=== PATIENT | male | born 1950 | race Asian ===

== ENCOUNTER 2016-08-13 22:17 | Emergency (ER) | payer BC ==
[~2016-08-13] VITALS: Ht 175.3 cm; Wt 76.2 kg
[2016-08-13 22:34] VITALS: BP 170/95
[2016-08-13] MEDS ORDERED: TDAP [DIPH/PERTUSSIS/TET] 0.5 ML VIAL IM ONE ×2 (23:30→23:57)
== END 2016-08-14 00:07 | disposition home or self-care (01) ==
LOC: ER 22:25
DX: S61.011A Laceration without foreign body of right thumb without damage to nail, initial encounter (principal); I48.91 Unspecified atrial fibrillation; W45.8XXA Other foreign body or object entering through skin, initial encounter; Y93.G3 Activity, cooking and baking; Y92.89 Other specified places as the place of occurrence of the external cause; Y99.8 Other external cause status
CPT/HCPCS: 12001; 90471; 90715; 99283; A4606; A6402 ×2; Z7610; L0172

== ENCOUNTER 2020-09-09 14:20 | Outpatient (CLI) | payer OTHER | END 2020-09-09 23:59 | disposition home or self-care (01) | LOC: WOU 14:20 | PROVIDERS: ATTEND Surgery | DX: S40.022A Contusion of left upper arm, initial encounter (principal); X58.XXXA Exposure to other specified factors, initial encounter; Y92.89 Other specified places as the place of occurrence of the external cause; I48.91 Unspecified atrial fibrillation; Z86.73 Personal history of transient ischemic attack (TIA), and cerebral infarction without residual deficits; Z79.01 Long term (current) use of anticoagulants | CPT/HCPCS: G0463 ==

== ENCOUNTER 2020-09-23 14:10 | Outpatient (CLI) | payer OTHER | END 2020-09-23 23:59 | disposition home or self-care (01) | LOC: WOU 14:10 | PROVIDERS: ATTEND Surgery | DX: S40.022D Contusion of left upper arm, subsequent encounter (principal); W22.8XXD Striking against or struck by other objects, subsequent encounter; I48.91 Unspecified atrial fibrillation; Z86.73 Personal history of transient ischemic attack (TIA), and cerebral infarction without residual deficits; Z79.01 Long term (current) use of anticoagulants | CPT/HCPCS: G0463 ==

== ENCOUNTER 2022-08-03 11:08 | Inpatient (IN) | payer OTHER ==
[~2022-08-03] VITALS: Ht 175.3 cm; Wt 72.6 kg
--- NOTE | 2022-08-03 11:38 | NUR ---
The patient is fully vaccinated against COVID-19, with Moderna and had booster shots
--- NOTE | 2022-08-03 11:38 | NUR ---
The patient was tested for COVID last week , 07/30/2022, which turns out positive
--- NOTE | 2022-08-03 11:38 | NUR ---
Brought by his son to the emergency department, complaining of shortness of breath, which started last night
--- NOTE | 2022-08-03 11:38 | NUR ---
Placed on nasal cannula at 4 L, with oxygen saturations recorded at 96%
--- NOTE | 2022-08-03 12:06 | NUR ---
blood drawn sent to lab
--- NOTE | 2022-08-03 12:19 | NUR ---
URINE SAMPLE SENT TO LAB
[2022-08-03 12:29] LABS: BILIRUBIN,URINE 2+ (NEGATIVE); COLOR,URINE DARK YELLOW (YELLOW); LEUKOCYTE ESTERASE ,URINE NEGATIVE (NEGATIVE); NITRITE, URINE NEGATIVE (NEGATIVE); PH,URINE 5.5 (5.0-8.0); PROTEIN,URINE 1+ mg/dl (NEGATIVE); UGLUCOSE NEGATIVE (NEGATIVE)
[2022-08-03 12:30] LABS: BASOPHILS % (AUTO) 0.1 % (0.0-2.0); EOSINOPHILS % (AUTO) 0.1 % (0.0-6.0); HEMATOCRIT 43 % (39-51); HEMOGLOBIN 14.2 g/dL (13.5-17.5); LYMPHOCYTES # (AUTO) 0.4 K/uL (0.8-4.8); LYMPHOCYTES % (AUTO) 10.9 % (20.0-44.0); MEAN CORPUSCULAR HGB CONC 33 g/dl (31.0-36.0); MEAN CORPUSCULAR VOLUME 93 fL (80-96); MONOCYTES # (AUTO) 0.2 K/uL (0.1-1.30); MONOCYTES % (AUTO) 4.4 % (2.0-12.0); NEUTROPHILS # (AUTO) 3.1 K/uL (1.8-8.9); NEUTROPHILS % (AUTO) 84.5 % (43.0-81.0); PLATELET COUNT (AUTO) 165 K/uL (150-450); RED BLOOD CELL COUNT(AUTO) 4.62 MIL/uL (4.5-6.0); WHITE BLOOD COUNT (AUTO) 3.7 K/uL (4.3-11.0)
[2022-08-03 12:37] LABS: CALCIUM, SERUM 8.2 mg/dL (8.5-10.1); CARBON DIOXIDE 23 mmol/L (21-32); CHLORIDE 95 mmol/L (98-107); CREATININE 1.2 mg/dL (0.6-1.3); GLUCOSE 120 mg/dL (74-106); POTASSIUM 3.1 mmol/L (3.5-5.1); SODIUM SERUM 131 mmol/L (136-145); UREA NITROGEN, BLOOD 17 mg/dL (7-18)
[2022-08-03 12:45] LABS: BACTERIA,URINE None seen /HPF (None Seen); COARSE GRANULAR CASTS,URINE Few /LPF (None Seen); HYALINE CASTS, URINE Few /LPF (None Seen); SQUAMOUS EPITHELIAL CELL,UR Rare /HPF (None Seen)
[2022-08-03 12:52] LABS: ALANINE AMINOTRANSFERASE 111 U/L (12-78); ALBUMIN 3.1 g/dL (3.4-5.0); ALKALINE PHOSPHATASE 68 U/L (46-116); ASPARTATE AMINOTRANSFERASE 271 U/L (15-37); BILIRUBIN,DIRECT 0.6 mg/dL (0.0-0.2); BILIRUBIN,TOTAL 1.2 mg/dL (0.2-1.0); TOTAL PROTEIN, SERUM 6.7 g/dL (6.4-8.2)
--- NOTE | 2022-08-03 13:12 | NUR ---
SWAB FOR COVID19 SENT TO LAB
[2022-08-03] MEDS ORDERED: AMIO200T5 PO (13:16)
[2022-08-03] MEDS ORDERED: METO25TA4 PO (13:16)
[2022-08-03] MEDS ORDERED: RIVA10TA PO (13:16)
[2022-08-03] MEDS ORDERED: ATOR40TA PO (13:16)
--- NOTE | 2022-08-03 13:47 | NUR ---
GOT BED 104 ADMITTING INFORMED.
--- NOTE | 2022-08-03 14:28 | NUR ---
REPORT GIVEN TO [facility] ROOM 104 FOR MAREN
--- NOTE | 2022-08-03 14:55 | NUR ---
RN NOTES: RECEIVED PT FROM ER ALERT AND ORIENTED X 4, ON OXYGEN 4 LITER VIA NASAL CANNULA, NOTED WITH SOB ON EXERTION, ON ISOLATION FOR COVID 19, SKIN INTACT, DENIED PAIN OR DISCOMFORT, ABLE TO MOVE ALL EXTREMITIES EXCEPT LEFT ARM NOTED WITH WEAKNESS DUE TO HX OF CVA ON 2019, WILL MONITOR
[2022-08-03] MEDS: ENOXAPARIN SODIUM 60 MG/0.6 ML DISP.SYRIN SQ SCH (15:52)
[2022-08-03 16:00] VITALS: BP 118/68
[2022-08-03] MEDS ORDERED: Z GUARD REMEDY 4 OZ OINT TP PRN (16:00)
[2022-08-03] MEDS ORDERED: MAGNESIUM HYDROXIDE 30 ML UDC PO PRN (16:00)
[2022-08-03] MEDS ORDERED: POTASSIUM CHLORIDE 20 MEQ TAB.PRT.SR PO ONE (16:00)
[2022-08-03] MEDS ORDERED: ONDANSETRON HCL/PF 4 MG/2 ML VIAL IVP PRN (16:00)
[2022-08-03] MEDS: DEXAMETHASONE SOD PHOSPHATE 10 MG/ML VIAL IV SCH (16:12)
[2022-08-03] MEDS: RIVAROXABAN 10 MG TABLET PO SCH (17:59)
[2022-08-03] MEDS: ATORVASTATIN 40 MG TABLET PO SCH (21:13)
[2022-08-03 22:00] VITALS: BP_SYST 118; BP_SYST 139; BP_DIAS 68; BP_DIAS 83
[2022-08-04 01:08] VITALS: BP 139/83
[2022-08-04] MEDS: ENOXAPARIN SODIUM 60 MG/0.6 ML DISP.SYRIN SQ SCH (02:35)
[2022-08-04 06:14] VITALS: BP 140/72
[2022-08-04 06:44] LABS: ALBUMIN 2.8 g/dL (3.4-5.0); BILIRUBIN,DIRECT 0.5 mg/dL (0.0-0.2); BILIRUBIN,TOTAL 1.1 mg/dL (0.2-1.0); CHOLESTEROL 87 mg/dL (<200); HDL CHOLESTEROL 31 mg/dL (40-60); LDL 42 mg/dL (0-99); TOTAL PROTEIN, SERUM 6.1 g/dL (6.4-8.2); TRIGLYCERIDES 81 mg/dL (30-150)
[2022-08-04 07:21] LABS: BASOPHILS % (AUTO) 0.3 % (0.0-2.0); HEMATOCRIT 37 % (39-51); HEMOGLOBIN 12.5 g/dL (13.5-17.5); LYMPHOCYTES # (AUTO) 0.5 K/uL (0.8-4.8); LYMPHOCYTES % (AUTO) 25.1 % (20.0-44.0); MEAN CORPUSCULAR HGB CONC 34 g/dl (31.0-36.0); MEAN CORPUSCULAR VOLUME 92 fL (80-96); MONOCYTES # (AUTO) 0.1 K/uL (0.1-1.30); MONOCYTES % (AUTO) 5.7 % (2.0-12.0); NEUTROPHILS # (AUTO) 1.5 K/uL (1.8-8.9); NEUTROPHILS % (AUTO) 68.9 % (43.0-81.0); PLATELET COUNT (AUTO) 166 K/uL (150-450); RED BLOOD CELL COUNT(AUTO) 3.99 MIL/uL (4.5-6.0); WHITE BLOOD COUNT (AUTO) 2.1 K/uL (4.3-11.0)
--- NOTE | 2022-08-04 07:25 | NUR ---
RN OPEN NOTE: ALERT AND ORIENTED TIMES 4. UNLABORED BREATHING AT ROOM AIR. NURSING INFORMATICS SPECIALIST WITH SINUS RHYTHM 74. IV ON RIGHT FOREARM INTACT. SALINE LOCKED, PATENT. NO S/S OF COMPLICATIONS. HOB ELEVATED ON SEMI-FOWLERS POSITION. BILATERAL HALF SIDE RAILS UPX2. BED IN LOW POSITION, LOCKED, EXIT ALARM ON. CALL LIGHT IN REACH. NO COUGH NO CONGESTION NOTED. DENIES PAIN OR DISCOMFORT.
[2022-08-04 07:59] LABS: ALANINE AMINOTRANSFERASE 122 U/L (12-78); ALBUMIN 2.8 g/dL (3.4-5.0); ALKALINE PHOSPHATASE 64 U/L (46-116); ASPARTATE AMINOTRANSFERASE 238 U/L (15-37); CALCIUM, SERUM 8.2 mg/dL (8.5-10.1); CARBON DIOXIDE 24 mmol/L (21-32); CHLORIDE 100 mmol/L (98-107); CREATININE 1.1 mg/dL (0.6-1.3); GLUCOSE 205 mg/dL (74-106); MAGNESIUM 2.2 mg/dL (1.8-2.4); POTASSIUM 3.8 mmol/L (3.5-5.1); SODIUM SERUM 134 mmol/L (136-145); TOTAL PROTEIN, SERUM 6.1 g/dL (6.4-8.2); UREA NITROGEN, BLOOD 18 mg/dL (7-18)
[2022-08-04 08:00] VITALS: BP 155/80
[2022-08-04] MEDS: PANTOPRAZOLE 40 MG TABLET.DR PO SCH (08:33)
[2022-08-04] MEDS: DEXAMETHASONE SOD PHOSPHATE 10 MG/ML VIAL IV SCH (08:33)
[2022-08-04] MEDS: METOPROLOL SUCCINATE 25 MG TAB.SR.24H PO SCH (08:34)
[2022-08-04] MEDS: AMIODARONE HCL 200 MG TABLET PO SCH (08:34)
[2022-08-04] MEDS: ACETAMINOPHEN 325 MG TABLET PO PRN (08:46)
[2022-08-04] MEDS: ASPIRIN 81 MG TAB.CHEW PO SCH (09:39)
--- NOTE | 2022-08-04 11:00 | NUR ---
RECEIVED VERBAL REPORT FROM [facility] 106 TRENDING DOWN.
[2022-08-04 12:00] VITALS: BP 125/68
[2022-08-04 16:00] VITALS: BP 125/71
[2022-08-04] MEDS: RIVAROXABAN 10 MG TABLET PO SCH (17:23)
--- NOTE | 2022-08-04 18:10 | NUR ---
RN CLOSING NOTE: ALERT AND ORIENTED TIMES 4. UNLABORED BREATHING WITH 02 2LPM NC SATING AT 100%. COVERAGE SPECIALIST RN WITH SINUS [id number]. DR. RILEY INFORMED PER [facility] ([facility]) LAB PATIENT IS POSITIVE FOR MRSA RIGHT NARE, AND MRSA CULTURE OF RIGHT NARE FINAL RESULTS SHOWS POSITIVE FOR MRSA OF RIGHT NARE WITH ORDERS FOR BACTROBAN BID. IV ON RIGHT FOREARM INTACT. SALINE LOCKED, PATENT. NO S/S OF COMPLICATIONS. HOB ELEVATED ON SEMI-FOWLERS POSITION. BILATERAL HALF SIDE RAILS UPX2. BED IN LOW POSITION, LOCKED, EXIT ALARM ON. CALL LIGHT IN REACH. NO COUGH NO CONGESTION NOTED. DENIES PAIN OR DISCOMFORT.
--- NOTE | 2022-08-04 19:30 | NUR ---
ORTHOPEDIC PHYSICIAN OPENING NOTE RECEIVED PT AWAKE IN BED. A/O X4 AND ABLE TO MAKE NEEDS KNOWN. PT ON O2 @ 2LPM VIA NC, TOLERATING WELL. NO SOB OR S/S OF RESPIRATORY DISTRESS. BREATHING EVEN AND UNLABORED. ON EXTERNAL MATERIAL MAN READING SR 60 BPM. IV ACCESS RFA 20G, INTACT AND PATENT. SAFETY PRECAUTIONS IN PLACE. BED IN LOWEST LOCKED POSITION, HOB ELEVATED, SIDE RAILS UP X2, AND CALL LIGHT AND TABLE WITHIN REACH. ALL NEEDS MET AT THIS TIME.
[2022-08-04 20:00] VITALS: BP 115/77
[2022-08-04] MEDS: MUPIROCIN OINT 2% 22 GM TUBE NS SCH (21:02)
[2022-08-04] MEDS: ATORVASTATIN 40 MG TABLET PO SCH (21:03)
[2022-08-05] VITALS: BP 130/52
[2022-08-05 04:00] VITALS: BP 121/83
[2022-08-05] MEDS: ACETAMINOPHEN 325 MG TABLET PO PRN ×2 (04:07→13:45)
--- NOTE | 2022-08-05 04:07 | NUR ---
RN NOTE PT COMPLAINED OF MILD HEADACHE AT THIS TIME. ADMINISTERED ACETAMINOPHEN 650 MG FOR MILD HEADACHE AT THIS TIME PER PT REQUEST. MADE COMFORTABLE IN BED. ALL NEEDS MET AT THIS TIME.
[2022-08-05 06:24] LABS: BASOPHILS % (AUTO) 0.2 % (0.0-2.0); HEMATOCRIT 33 % (39-51); HEMOGLOBIN 11.1 g/dL (13.5-17.5); LYMPHOCYTES # (AUTO) 0.5 K/uL (0.8-4.8); LYMPHOCYTES % (AUTO) 7.8 % (20.0-44.0); MEAN CORPUSCULAR HGB CONC 34 g/dl (31.0-36.0); MEAN CORPUSCULAR VOLUME 92 fL (80-96); MONOCYTES # (AUTO) 0.5 K/uL (0.1-1.30); MONOCYTES % (AUTO) 7.7 % (2.0-12.0); NEUTROPHILS # (AUTO) 5.2 K/uL (1.8-8.9); NEUTROPHILS % (AUTO) 84.3 % (43.0-81.0); PLATELET COUNT (AUTO) 174 K/uL (150-450); RED BLOOD CELL COUNT(AUTO) 3.57 MIL/uL (4.5-6.0); WHITE BLOOD COUNT (AUTO) 6.2 K/uL (4.3-11.0)
--- NOTE | 2022-08-05 06:40 | NUR ---
FOREIGN FOOD SPECIALTY COOK CLOSING NOTE PT AWAKE IN BED. A/O X4 AND ABLE TO MAKE NEEDS KNOWN. PT ON O2 @ 2LPM VIA NC, TOLERATING WELL, FOR COMFORT ONLY. NO SOB OR S/S OF RESPIRATORY DISTRESS. BREATHING EVEN AND UNLABORED. ON EXTERNAL GRAPHICS EDIT TECHNICIAN READING V PACING 60 BPM. IV ACCESS RFA 20G SL, INTACT AND PATENT. ALL DUE MEDS GIVEN ORDERED. KEPT CLEAN AND DRY. SAFETY PRECAUTIONS IN PLACE AT ALL TIMES. BED IN LOWEST LOCKED POSITION, HOB ELEVATED, SIDE RAILS UP X2, AND CALL LIGHT AND TABLE WITHIN REACH. ALL NEEDS MET AT THIS TIME AND WILL ENDORSE TO ONCOMING NURSE FOR MAREN.
[2022-08-05 06:52] LABS: CALCIUM, SERUM 8.1 mg/dL (8.5-10.1); CARBON DIOXIDE 24 mmol/L (21-32); CHLORIDE 101 mmol/L (98-107); GLUCOSE 136 mg/dL (74-106); POTASSIUM 3.9 mmol/L (3.5-5.1); SODIUM SERUM 132 mmol/L (136-145); UREA NITROGEN, BLOOD 23 mg/dL (7-18)
--- NOTE | 2022-08-05 07:10 | NUR ---
HORTICULTURE SUPERVISOR NOTES Received pt awake in bed AOX4. No complaints of pain or discomfort at this time. Pt is currently on 2L NC and tolerating it well. IV access on RFA 20G SL patent and intact. HOB elevated to pts comfort. Siderails up at all times x2. Call light within reach. Will continue to monitor.
[2022-08-05] MEDS: PANTOPRAZOLE 40 MG TABLET.DR PO SCH (07:45)
[2022-08-05 08:00] VITALS: BP 130/75
[2022-08-05] MEDS: AMIODARONE HCL 200 MG TABLET PO SCH (08:40)
[2022-08-05] MEDS: METOPROLOL SUCCINATE 25 MG TAB.SR.24H PO SCH (08:40)
[2022-08-05] MEDS: ASPIRIN 81 MG TAB.CHEW PO SCH (08:40)
[2022-08-05] MEDS: MUPIROCIN OINT 2% 22 GM TUBE NS SCH ×2 (08:40→21:14)
[2022-08-05] MEDS: DEXAMETHASONE SOD PHOSPHATE 10 MG/ML VIAL IV SCH (08:43)
[2022-08-05 12:00] VITALS: BP 127/76
[2022-08-05 16:00] VITALS: BP 114/68
[2022-08-05] MEDS: RIVAROXABAN 10 MG TABLET PO SCH (17:06)
--- NOTE | 2022-08-05 18:43 | NUR ---
PET STYLIST CLOSING NOTE All due meds and tx given as ordered. Pt tolerated everything well. All needs attended to. Pt is currently on RA and tolerating it well. IV access on RFA 20G SL patent and intact. HOB elevated to 30-45 degrees. Siderails up at all times x2. Call light within reach. Will endorse to oncoming nurse.
--- NOTE | 2022-08-05 19:30 | NUR ---
SUPERINTENDENT LAUNDRY OPENING NOTE RECEIVED PT IN BED, AWAKE, A/O X4, VERBALLY RESPONSIVE. DENIES PAIN/DISCOMFORT AT THIS TIME. CURRENTLY ON O2 2LPM VIA NC, TOLERATING WELL, NO SOB OR S/S OF RESPIRATORY DISTRESS. BREATHING EVEN AND UNLABORED. ON EXTERNAL PATIENT COORDINATOR FRONT DESK READING SR 60 BPM. IV ACCESS RFA 20G, CLEAN, INTACT AND DRY. SAFETY PRECAUTIONS IN PLACE. BED IN LOWEST LOCKED POSITION, HOB ELEVATED, SIDE RAILS UP X2, CALL LIGHT AND TABLE WITHIN REACH. WILL CONT POC.
[2022-08-05 20:00] VITALS: BP 125/70
[2022-08-05] MEDS: ATORVASTATIN 40 MG TABLET PO SCH (21:15)
[2022-08-06] VITALS: BP 116/67
[2022-08-06 04:00] VITALS: BP 108/67
--- NOTE | 2022-08-06 06:23 | NUR ---
SOLAR ENERGY ENGINEER CLOSING NOTE PT IN BED, ASLEEP, EASILY AWAKEN WITH VERBAL STIMULI. NO SIGNIFICANT CHANGES NOTED DURING THE SHIFT. NO EVIDENCE OF PAIN/DISCOMFORT AT THIS TIME. ON RA, TOLERATING WELL, O2 SAT 97%, NO SOB OR S/S OF ACUTE RESPIRATORY DISTRESS. RESPIRATION EVEN AND UNLABORED. ON EXTERNAL WORLD RENOWNED CHEF AND RESTAURANT OWNER VPACING 60. IV ACCESS ON RFA 20G, INTACT AND FLUSHES WELL. ALL DUE MEDICATIONS GIVEN ORDERED. ALL NEEDS ATTENDED. SAFETY PRECAUTIONS IN PLACED: BED IN LOWEST LOCKED POSITION, HOB ELEVATED, SIDE RAILS UP X2, CALL LIGHT AND TABLE WITHIN REACH.
[2022-08-06 07:09] LABS: CALCIUM, SERUM 8.6 mg/dL (8.5-10.1); CARBON DIOXIDE 28 mmol/L (21-32); CHLORIDE 100 mmol/L (98-107); GLUCOSE 131 mg/dL (74-106); POTASSIUM 3.8 mmol/L (3.5-5.1); SODIUM SERUM 134 mmol/L (136-145); UREA NITROGEN, BLOOD 25 mg/dL (7-18)
[2022-08-06 07:22] LABS: ALBUMIN 2.9 g/dL (3.4-5.0); TOTAL PROTEIN, SERUM 6.3 g/dL (6.4-8.2)
[2022-08-06] MEDS: PANTOPRAZOLE 40 MG TABLET.DR PO SCH (07:33)
--- NOTE | 2022-08-06 07:40 | NUR ---
WEB DEVELOPMENT DIRECTOR OPEN NOTE PT IN BED, ASLEEP, EASILY AWAKEN WITH VERBAL STIMULI. NO EVIDENCE OF PAIN/DISCOMFORT AT THIS TIME. ON RA, TOLERATING WELL, O2 SAT 99%, NO SOB OR S/S OF ACUTE RESPIRATORY DISTRESS. RESPIRATION EVEN AND UNLABORED. ON EXTERNAL SWISS TYPE SCREW MACHINE OPERATOR VPACING 66. IV ACCESS ON RFA 20G, INTACT AND FLUSHES WELL.SAFETY PRECAUTIONS IN PLACED: BED IN LOWEST LOCKED POSITION, HOB ELEVATED, SIDE RAILS UP X2, CALL LIGHT AND TABLE WITHIN REACH. WILL CONTINUE TO MONITOR
[2022-08-06 07:53] LABS: BILIRUBIN,DIRECT 0.5 mg/dL (0.0-0.2); BILIRUBIN,TOTAL 1.2 mg/dL (0.2-1.0)
[2022-08-06 08:00] VITALS: BP 125/64
[2022-08-06] MEDS: MUPIROCIN OINT 2% 22 GM TUBE NS SCH ×2 (08:28→21:27)
[2022-08-06] MEDS: DEXAMETHASONE SOD PHOSPHATE 10 MG/ML VIAL IV SCH (08:29)
[2022-08-06] MEDS: AMIODARONE HCL 200 MG TABLET PO SCH (08:29)
[2022-08-06] MEDS: ASPIRIN 81 MG TAB.CHEW PO SCH (08:30)
[2022-08-06] MEDS: METOPROLOL SUCCINATE 25 MG TAB.SR.24H PO SCH (08:30)
[2022-08-06 09:42] LABS: HEMATOCRIT 32 % (39-51); HEMOGLOBIN 10.9 g/dL (13.5-17.5); MEAN CORPUSCULAR HGB CONC 34 g/dl (31.0-36.0); MEAN CORPUSCULAR VOLUME 92 fL (80-96); PLATELET COUNT (AUTO) 182 K/uL (150-450); RED BLOOD CELL COUNT(AUTO) 3.53 MIL/uL (4.5-6.0); WHITE BLOOD COUNT (AUTO) 7.9 K/uL (4.3-11.0)
[2022-08-06 12:14] VITALS: BP 124/76
[2022-08-06 16:00] VITALS: BP 134/77
[2022-08-06] MEDS: RIVAROXABAN 10 MG TABLET PO SCH (17:34)
[2022-08-06 18:05] LABS: BAND % (MANUAL) 1 % (0.0-5.0); LYMPHOCYTES % (MANUAL) 8 % (16-48); MONOCYTES % (MANUAL) 12 % (0-11.0); NEUTROPHILS % (MANUAL) 79 (42-76)
--- NOTE | 2022-08-06 18:35 | NUR ---
HEAVY RAIL TRAIN OPERATOR CLOSING NOTE PT IN BED, ALERT , ORIENTED TIMES 3 , NO EVIDENCE OF PAIN/DISCOMFORT AT THIS TIME. ON RA, TOLERATING WELL, O2 SAT 99%, NO SOB OR S/S OF ACUTE RESPIRATORY DISTRESS. RESPIRATION EVEN AND UNLABORED. ON EXTERNAL POULTRY EVISCERATOR VPACING 68 IV ACCESS ON RFA 20G, INTACT AND FLUSHES WELL.ALL MEDICATIONS WERE ADMINISTERED , ALL NEEDS WERE MET .SAFETY PRECAUTIONS IN PLACED: BED IN LOWEST LOCKED POSITION, HOB ELEVATED, SIDE RAILS UP X2, CALL LIGHT AND TABLE WITHIN REACH. WILL ENDORSE QA AUTOMATION ARCHITECT NURSE TO FALLOW POC
--- NOTE | 2022-08-06 19:30 | NUR ---
PRODUCTION ASSISTANT OPENING NOTE RECEIVED PT IN COMFORTABLY RESTING IN BED, AWAKE, A/O X4, VERBALLY RESPONSIVE. DENIES PAIN/DISCOMFORT AT THIS TIME. ON ROOM AIR, TOLERATING WELL, NO SOB OR S/S OF RESPIRATORY DISTRESS. BREATHING EVEN AND UNLABORED. EXTERNAL SURGICAL ONCOLOGIST ATTACHED. IV ACCESS RFA 20G, CLEAN, INTACT, DRY AND FLUSHES WELL. SAFETY PRECAUTIONS IN PLACED. BED IN LOWEST AND LOCKED POSITION, HOB ELEVATED, SIDE RAILS UP X2, CALL LIGHT AND TABLE WITHIN REACH. WILL CONT POC.
[2022-08-06 20:00] VITALS: BP 133/74
[2022-08-06] MEDS: ATORVASTATIN 40 MG TABLET PO SCH (21:27)
[2022-08-07] VITALS: BP 134/84
[2022-08-07 04:00] VITALS: BP 138/79
--- NOTE | 2022-08-07 06:19 | NUR ---
COMMERCIAL DRONE PILOT CLOSING NOTE PT REMAINS IN STABLE CONDITION. NO SIGNIFICANT CHANGES NOTED DURING THE SHIFT. REMAINS ON RA, WELL MARQUIS. NO SOB/ NO ACUTE RESP. DISTRESS NOTED, O2 SAT 96%. RESPIRATION EVEN AND UNLABORED. ATTACHED TO EXTERNAL INBOUND CALL CENTER REPRESENTATIVE AV PACING SR. VS WNL. ALL DUE MEDS GIVEN ORDERED. SAFETY PRECAUTIONS IMPLEMENTED AT ALL TIMES: BED LOCKED AND IN LOWEST POSITION, CALL LIGHT WITHIN EASY REACH. WILL ENDORSE TO AM SHIFT FOR MAREN.
--- NOTE | 2022-08-07 07:00 | NUR ---
DAIRY CATTLE FARM WORKER OPEN NOTE PT IN BED, ASLEEP, EASILY AWAKEN WITH VERBAL STIMULI. NO EVIDENCE OF PAIN/DISCOMFORT AT THIS TIME. O2 2L VIA NC, TOLERATING WELL, SAT 99%, NO SOB OR S/S OF ACUTE RESPIRATORY DISTRESS. RESPIRATION EVEN AND UNLABORED. IV ACCESS ON RFA 20G, INTACT AND FLUSHES WELL. ORDER FOR DISCHARGE TODAY, CLEARANCE FOR DC FOR DR BALLESTEROS. PT HAS A SCHEDULED CARDIOLOGY APPOINTMENT OUTSIDE A HOSPITAL, FAMILY GUILLERMO COME TO RAILROAD POLICE OFFICER PT.
[2022-08-07] MEDS: PANTOPRAZOLE 40 MG TABLET.DR PO SCH (07:52)
[2022-08-07 08:00] VITALS: BP 133/72
[2022-08-07] MEDS: DEXAMETHASONE SOD PHOSPHATE 10 MG/ML VIAL IV SCH (08:44)
[2022-08-07] MEDS: ASPIRIN 81 MG TAB.CHEW PO SCH (08:44)
[2022-08-07] MEDS: METOPROLOL SUCCINATE 25 MG TAB.SR.24H PO SCH (08:45)
[2022-08-07] MEDS: MUPIROCIN OINT 2% 22 GM TUBE NS SCH (08:46)
[2022-08-07 08:48] VITALS: BP 133/72
[2022-08-07] MEDS: AMIODARONE HCL 200 MG TABLET PO SCH (08:48)
[2022-08-07] MEDS ORDERED: DEXA6TAB6 PO (09:44)
== END 2022-08-07 11:25 | disposition home health service (06) | DRG 177 ==
LOC: ER 11:08 → TELE1 14:18
PROVIDERS: ADMIT Nurse Practitioner Family; ATTEND Internal Medicine
DX: U07.1 COVID-19 (principal); I21.A1 Myocardial infarction type 2; J96.01 Acute respiratory failure with hypoxia; E87.1 Hypo-osmolality and hyponatremia; I69.354 Hemiplegia and hemiparesis following cerebral infarction affecting left non-dominant side; E44.1 Mild protein-calorie malnutrition; I48.91 Unspecified atrial fibrillation; Z95.0 Presence of cardiac pacemaker; E78.5 Hyperlipidemia, unspecified; G47.30 Sleep apnea, unspecified; Z79.01 Long term (current) use of anticoagulants; Z79.899 Other long term (current) drug therapy; E87.6 Hypokalemia; E80.6 Other disorders of bilirubin metabolism; R74.01 Elevation of levels of liver transaminase levels; E88.09 Other disorders of plasma-protein metabolism, not elsewhere classified; D72.819 Decreased white blood cell count, unspecified; E11.9 Type 2 diabetes mellitus without complications; I25.10 Atherosclerotic heart disease of native coronary artery without angina pectoris; J44.9 Chronic obstructive pulmonary disease, unspecified; Z78.9 Other specified health status
CPT/HCPCS: 36415; 71045-TC; 71250-TC; 76700-TC; 80048-TC; 80053-TC; 80061-TC; 80076-TC; 81001; 83605-TC; 83735-TC; 84484-TC; 85025-TC; 85378-TC; 85730-TC; 86140-TC; 87040-TC; 87081-TC; 87086-TC; 93307-TC; 97112-TC; 97116-TC; 97530-TC; G0378; J1100; J1650